=== PATIENT | female | born 1995 | race Caucasian/White ===

== ENCOUNTER 2017-12-21 20:25 | Emergency (ER) | payer OTHER ==
[~2017-12-21] VITALS: Ht 167.6 cm; Wt 116.8 kg
[2017-12-21 22:33] LABS: HEMATOCRIT 36.5 % (36.0-46.0); HEMOGLOBIN 11.7 G/DL (11.9-15.5); MCH 24.7 PG (29.0-34.0); MCHC 32.1 G/DL (30.0-36.0); MCV 77.2 FL (83-99); PLATELET COUNT 415 K/uL (156-360); RBC DIS.WIDTH-CV 14.8 % (11.8-14.6); RBC DIS.WIDTH-SD 41.5 % (39-53); RED BLOOD COUNT 4.73 M/uL (3.80-5.20); WHITE BLOOD COUNT 9.4 K/uL (4.1-10.2)
[2017-12-21 22:48] LABS: CHLORIDE 108 mEq/L (99-109); POTASSIUM 4.1 mEq/L (3.7-5.4); SODIUM 140 mEq/L (136-147)
[2017-12-21 22:50] LABS: GLUCOSE 166 mg/dL (70-99)
[2017-12-21 22:55] LABS: UREA NITROGEN (BUN) 11 mg/dL (9-23)
[2017-12-21 22:56] LABS: CREATINE KINASE 100 IU/L (1-294)
[2017-12-21 23:28] LABS: CREATININE 0.9 mg/dL (0.6-1.3); GFR ESTIMATE (CALCULATED) > 59 mL/min/
[2017-12-22 00:07] VITALS: BP 160/83
[2017-12-22 07:46] LABS: THYROTROPIN (TSH) 4.6 MIU/L (0.4-5.5)
[2017-12-22 10:00] LABS: LYME DISEASE SEROLOGY SCREEN NEGATIVE (NEGATIVE)
== END 2017-12-22 00:07 | disposition home or self-care (01) ==
LOC: EME 20:25 → EXP 20:25
PROVIDERS: Physician Assistant
DX: R20.2 Paresthesia of skin (principal); M79.672 Pain in left foot; M79.671 Pain in right foot; M79.604 Pain in right leg; M79.605 Pain in left leg; R60.0 Localized edema
CPT/HCPCS: 80048; 82550; 82607; 83921 90; 84443; 85027; 86618; 93971; 99281; 99284